=== PATIENT | male | born 1980 | race Caucasian/White ===

== ENCOUNTER 2020-06-06 17:18 | Emergency (ER) | payer OTHER ==
[~2020-06-06] VITALS: Ht 177.8 cm; Wt 72.6 kg
[2020-06-06] MEDS ORDERED: SERT50TA PO (17:38)
[2020-06-06] MEDS ORDERED: ALBU8.5H8 INH (17:38)
[2020-06-06] MEDS ORDERED: ZYPREXA PO (17:38)
--- NOTE | 2020-06-06 17:47 | NUR ---
PT IS IN ROOM #1A. DR BOSE EVALUATED THE PT. PT IS RESTING IN BED COMFORTABLY. NO ACUTE DISTRESS. PT IS UNDER DIRECT SUPERVISION OF LORI DEE.
[2020-06-06 17:51] LABS: BASOPHILS % (AUTO) 0.5 % (0.0-2.0); EOSINOPHILS # (AUTO) 0.5 K/uL (0.0-0.7); EOSINOPHILS % (AUTO) 6.5 % (0.0-7.0); HEMATOCRIT 39.7 % (36.7-47.1); HEMOGLOBIN 13.9 g/dL (12.5-16.3); LYMPHOCYTES # (AUTO) 2.6 K/uL (20.0-40.0); LYMPHOCYTES % (AUTO) 35.1 % (20.5-51.5); MEAN CORPUSCULAR HEMOGLOBIN 31.2 uug (23.8-33.4); MEAN CORPUSCULAR HGB CONC 35 g/dL (32.5-36.3); MEAN CORPUSCULAR VOLUME 89.1 fL (73.0-96.2); MONOCYTES # (AUTO) 0.7 K/uL (2.0-10.0); MONOCYTES % (AUTO) 8.8 % (0.0-11.0); NEUTROPHILS # (AUTO) 3.7 K/uL (1.8-8.9); NEUTROPHILS % (AUTO) 49.1 % (38.5-71.5); PLATELET COUNT (AUTO) 274 K/uL (152-348); RED BLOOD CELL COUNT(AUTO) 4.45 MIL/uL (4.06-5.63); WHITE BLOOD COUNT (AUTO) 7.5 K/uL (3.6-10.2)
[2020-06-06 18:04] LABS: ETHANOL < 3 MG/DL (0-0)
[2020-06-06 18:09] LABS: *AMPHETAMINE, URINE NEGATIVE (NEGATIVE); *CANNABINOID, URINE NEGATIVE (NEGATIVE); *COCCAINE, URINE NEGATIVE (NEGATIVE); *OPIATE, URINE NEGATIVE (NEGATIVE); *PHENCYCLIDINE SCREEN,URINE NEGATIVE (NEGATIVE)
[2020-06-06 18:12] LABS: ALANINE AMINOTRANSFERASE 172 U/L (16-63); ALKALINE PHOSPHATASE 92 U/L (50-136); ASPARTATE AMINOTRANSFERASE 63 U/L (15-37); BILIRUBIN,DIRECT 0.1 mg/dL (0.0-0.2); BILIRUBIN,TOTAL 0.2 mg/dL (0.2-1.0); CARBON DIOXIDE 30 mmol/L (21-32); CHLORIDE 103 mmol/L (98-107); CREATININE 0.9 mg/dL (0.6-1.3); GLUCOSE 99 mg/dL (74-106); POTASSIUM 3.9 mmol/L (3.5-5.1); TOTAL PROTEIN, SERUM 7.1 g/dL (6.4-8.2); UREA NITROGEN, BLOOD 16 mg/dL (7-18)
--- NOTE | 2020-06-06 18:12 | NUR ---
[facility] [address] WAS CALLED ([phone]) , TALKED TO NURSING WILDLAND FIRE FIGHTER TREVER. PAPERWORK SHOULD BE FAXED TO # [phone].
[2020-06-06 18:25] LABS: ACETAMINOPHEN < 2.0 ug/mL (10-30)
--- NOTE | 2020-06-06 19:26 | NUR ---
Gary from [facility] faxed on all documents for transfer
--- NOTE | 2020-06-06 19:48 | NUR ---
Patient noted resting in bed watching TV, no behaviors noted at this time
--- NOTE | 2020-06-06 21:52 | NUR ---
Received telephone call from Melanie who stated pt has been accepted and may be transfered to [facility], Dr. Potter accepting, call [phone] [phone] for report.
--- NOTE | 2020-06-06 21:55 | NUR ---
Called [facility] for transport to [facility], trip#[id number], eta [phone].
--- NOTE | 2020-06-06 22:39 | NUR ---
Report given to Marianela SANDOVAL from [facility]
--- NOTE | 2020-06-06 23:20 | NUR ---
Patient Tranfers to outside Facility [facility] Physician:Dr. Potter Location:[place]
== END 2020-06-06 23:20 ==
LOC: ER 17:21
DX: F32.9 Major depressive disorder, single episode, unspecified (principal); R45.851 Suicidal ideations; R74.01 Elevation of levels of liver transaminase levels; Z20.828 Contact with and (suspected) exposure to other viral communicable diseases; J45.909 Unspecified asthma, uncomplicated; F41.9 Anxiety disorder, unspecified; Z79.899 Other long term (current) drug therapy
CPT/HCPCS: 36415; 85025; A4663; G0480

== ENCOUNTER 2020-08-18 18:25 | Emergency (ER) | payer OTHER ==
[~2020-08-18] VITALS: Ht 177.8 cm; Wt 72.6 kg
[~2020-08-18 18:25] MED LIST: ALBU8.5H8 INH; SERT50TA PO; ZYPREXA PO
--- NOTE | 2020-08-18 18:58 | NUR ---
I SPOKE WITH ART AT [facility] OR [facility], HE STATED THEY NEED A UA,UDS,CBC AND COVID TEST FOR MEDICAL CLEARANCE, AND TO FAX THE INFORMATION WHEN READY, [employer] NOTIFIED. INTAKE INFO: TEL: [phone] FAX: [phone]
[2020-08-18 19:30] LABS: *BILIRUBIN,URIN NEGATIVE (NEGATIVE); *BLOOD, URINE NEGATIVE (NEGATIVE); *CLARITY,URINE CLEAR (CLEAR); *COLOR,URINE YELLOW (YELLOW); *KETONES,URINE 1+ (NEGATIVE); *UROBILINOGEN,URINE 0.2 E.U./dl (NORMAL); LEUKOCYTE ESTERASE ,URINE NEGATIVE (NEGATIVE); NITRITE, URINE NEGATIVE (NEGATIVE); PH,URINE 5.5 (5.0-8.0); UGLUCOSE NEGATIVE (NEGATIVE)
[2020-08-18 19:36] LABS: *AMPHETAMINE, URINE NEGATIVE (NEGATIVE); *CANNABINOID, URINE NEGATIVE (NEGATIVE); *COCCAINE, URINE NEGATIVE (NEGATIVE); *OPIATE, URINE NEGATIVE (NEGATIVE); *PHENCYCLIDINE SCREEN,URINE NEGATIVE (NEGATIVE)
[2020-08-18] MEDS ORDERED: LORAZEPAM 0.5 MG TABLET PO ONE (20:15)
[2020-08-18 20:16] LABS: BASOPHILS % (AUTO) 0.4 % (0.0-2.0); EOSINOPHILS # (AUTO) 0.4 K/uL (0.0-0.7); EOSINOPHILS % (AUTO) 3.6 % (0.0-7.0); HEMATOCRIT 45.5 % (36.7-47.1); HEMOGLOBIN 15.3 g/dL (12.5-16.3); LYMPHOCYTES # (AUTO) 2.2 K/uL (20.0-40.0); LYMPHOCYTES % (AUTO) 21.3 % (20.5-51.5); MEAN CORPUSCULAR HEMOGLOBIN 30.7 uug (23.8-33.4); MEAN CORPUSCULAR HGB CONC 34 g/dL (32.5-36.3); MEAN CORPUSCULAR VOLUME 91.4 fL (73.0-96.2); MONOCYTES # (AUTO) 0.7 K/uL (2.0-10.0); MONOCYTES % (AUTO) 6.4 % (0.0-11.0); NEUTROPHILS # (AUTO) 7.1 K/uL (1.8-8.9); NEUTROPHILS % (AUTO) 68.3 % (38.5-71.5); PLATELET COUNT (AUTO) 313 K/uL (152-348); RED BLOOD CELL COUNT(AUTO) 4.98 MIL/uL (4.06-5.63); WHITE BLOOD COUNT (AUTO) 10.5 K/uL (3.6-10.2)
[2020-08-18] MEDS ORDERED: LORAZEPAM 0.5 MG TABLET ONE (20:19)
[2020-08-18 20:24] LABS: CARBON DIOXIDE 25 mmol/L (21-32); CHLORIDE 102 mmol/L (98-107); CREATININE 0.8 mg/dL (0.6-1.3); ETHANOL < 3 MG/DL (0-0); GLUCOSE 124 mg/dL (74-106); POTASSIUM 3.4 mmol/L (3.5-5.1); UREA NITROGEN, BLOOD 9 mg/dL (7-18)
[2020-08-18 20:29] LABS: ACETAMINOPHEN < 2.0 ug/mL (10-30); ALANINE AMINOTRANSFERASE 105 U/L (16-63); ALKALINE PHOSPHATASE 82 U/L (50-136); ASPARTATE AMINOTRANSFERASE 35 U/L (15-37); BILIRUBIN,DIRECT 0.2 mg/dL (0.0-0.2); BILIRUBIN,TOTAL 0.5 mg/dL (0.2-1.0); TOTAL PROTEIN, SERUM 7.4 g/dL (6.4-8.2)
--- NOTE | 2020-08-18 20:30 | NUR ---
PATIENT ARE MEDICALLY CLEARED BY DR CHAMPION
--- NOTE | 2020-08-18 20:50 | NUR ---
I SPOKE WITH ART AT [facility]. TEST FAXED REQUESTED TO [phone].
--- NOTE | 2020-08-18 21:28 | NUR ---
SPOKE WIHT ART FROM [facility] WAITING FOR [employer] FAX WAS RECEIVED.
--- NOTE | 2020-08-18 22:10 | NUR ---
pt placed on a guerney ,positioned for comfort.
[2020-08-18] MEDS ORDERED: POTASSIUM CHLORIDE 10 MEQ TAB.PRT.SR PO ONE (23:30)
[2020-08-18] MEDS ORDERED: POTASSIUM CHLORIDE 10 MEQ TAB.PRT.SR ONE (23:52)
--- NOTE | 2020-08-19 01:39 | NUR ---
PT SLEEPING AT 0100 RECEIVED A CALL FROM [facility] TO IN FORM ACCEPTANCE , DR NICHOLSON ACCPTED THE PT.
--- NOTE | 2020-08-19 03:17 | NUR ---
SBAR REPORT TO [place] FROM [facility] [address]
--- NOTE | 2020-08-19 03:30 | NUR ---
CALLED VALER[facility] TO REPORT ETA OF PT ARRIVAL AT FACILITY AT 8AM
--- NOTE | 2020-08-19 07:49 | NUR ---
Patient is awake and alert. Awaiting for transfer. Patient ambulated to bathroom with steady gait.
--- NOTE | 2020-08-19 08:30 | NUR ---
Patient drank a bottle of water. Ambiulance here to take patient to other facility. Vital signs stable.
== END 2020-08-19 08:33 ==
LOC: ER 18:27
DX: F32.9 Major depressive disorder, single episode, unspecified (principal); F41.9 Anxiety disorder, unspecified; Z20.828 Contact with and (suspected) exposure to other viral communicable diseases; J45.909 Unspecified asthma, uncomplicated; F15.10 Other stimulant abuse, uncomplicated
CPT/HCPCS: 36415; 85025; A4663; G0480

== ENCOUNTER 2020-08-30 06:31 | Emergency (ER) | payer OTHER ==
[~2020-08-30] VITALS: Ht 177.8 cm; Wt 77.1 kg
[~2020-08-30 06:31] MED LIST changes: -ZYPREXA PO
[2020-08-30 07:07] LABS: *BILIRUBIN,URIN NEGATIVE (NEGATIVE); *BLOOD, URINE NEGATIVE (NEGATIVE); *CLARITY,URINE SLIGHTLY CLOUDY (CLEAR); *COLOR,URINE YELLOW (YELLOW); *KETONES,URINE NEGATIVE (NEGATIVE); *UROBILINOGEN,URINE 0.2 E.U./dl (NORMAL); LEUKOCYTE ESTERASE ,URINE NEGATIVE (NEGATIVE); NITRITE, URINE NEGATIVE (NEGATIVE); PH,URINE 5.5 (5.0-8.0); UGLUCOSE NEGATIVE (NEGATIVE)
[2020-08-30 07:14] LABS: BASOPHILS # (AUTO) 0.1 K/uL (0.0-8.0); BASOPHILS % (AUTO) 0.7 % (0.0-2.0); EOSINOPHILS # (AUTO) 0.3 K/uL (0.0-0.7); EOSINOPHILS % (AUTO) 4.4 % (0.0-7.0); HEMATOCRIT 43.7 % (36.7-47.1); HEMOGLOBIN 15.1 g/dL (12.5-16.3); LYMPHOCYTES # (AUTO) 1.6 K/uL (20.0-40.0); LYMPHOCYTES % (AUTO) 21.1 % (20.5-51.5); MEAN CORPUSCULAR HEMOGLOBIN 30.9 uug (23.8-33.4); MEAN CORPUSCULAR HGB CONC 35 g/dL (32.5-36.3); MEAN CORPUSCULAR VOLUME 89.3 fL (73.0-96.2); MONOCYTES # (AUTO) 0.5 K/uL (2.0-10.0); MONOCYTES % (AUTO) 6.5 % (0.0-11.0); NEUTROPHILS # (AUTO) 5.2 K/uL (1.8-8.9); NEUTROPHILS % (AUTO) 67.3 % (38.5-71.5); PLATELET COUNT (AUTO) 283 K/uL (152-348); RED BLOOD CELL COUNT(AUTO) 4.89 MIL/uL (4.06-5.63); WHITE BLOOD COUNT (AUTO) 7.7 K/uL (3.6-10.2)
[2020-08-30 07:24] LABS: CARBON DIOXIDE 27 mmol/L (21-32); CHLORIDE 103 mmol/L (98-107); CREATININE 0.9 mg/dL (0.6-1.3); GLUCOSE 101 mg/dL (74-106); POTASSIUM 3.6 mmol/L (3.5-5.1); UREA NITROGEN, BLOOD 13 mg/dL (7-18)
[2020-08-30 07:30] LABS: ALANINE AMINOTRANSFERASE 68 U/L (16-63); ALKALINE PHOSPHATASE 81 U/L (50-136); ASPARTATE AMINOTRANSFERASE 23 U/L (15-37); BILIRUBIN,DIRECT 0.1 mg/dL (0.0-0.2); BILIRUBIN,TOTAL 0.4 mg/dL (0.2-1.0); TOTAL PROTEIN, SERUM 7.5 g/dL (6.4-8.2)
[2020-08-30 07:31] LABS: ACETAMINOPHEN < 2.0 ug/mL (10-30); ETHANOL < 3 MG/DL (0-0)
[2020-08-30 07:32] LABS: *AMPHETAMINE, URINE NEGATIVE (NEGATIVE); *CANNABINOID, URINE NEGATIVE (NEGATIVE); *COCCAINE, URINE NEGATIVE (NEGATIVE); *OPIATE, URINE NEGATIVE (NEGATIVE); *PHENCYCLIDINE SCREEN,URINE NEGATIVE (NEGATIVE)
--- NOTE | 2020-08-30 08:44 | NUR ---
finishe hospital tray with good apetite
[2020-08-30 08:48] LABS: RBC,URINE 0-3 /HPF (0-3)
[2020-08-30 08:49] LABS: BACTERIA,URINE NONE SEEN /HPF (NONE SEEN); SQUAMOUS EPITHELIAL CELL,UR FEW /HPF (NONE SEEN); WBC,URINE 0-3 /HPF (0-3)
--- NOTE | 2020-08-30 10:40 | NUR ---
[employer] ARTISTIC DIRECTOR AT [facility]
--- NOTE | 2020-08-30 12:23 | NUR ---
lunch tray provided for pt.
--- NOTE | 2020-08-30 13:19 | NUR ---
10:40am: SW met with this patient, per request from ED RN David for a medical social consultant consultation to assist with voluntary inpatient psychiatric placement. Patient is a 39 year old male, awake, alert, oriented x 4, receptive to meeting with this SW. Patient states he is homeless and lives with his friend Ethan in their car. Patient reports coming to the ED due to Depression and Anxiety, along with suicidal ideation of possibly wanting to overdose. Patient reports recent hospitalization at [facility], and expressed wanting to return there voluntarily. Patient stated that the during his recent hospitalization at [facility], patient was prescribed Zoloft and Zyprexa, but he feels the medications are not working very well. Patient reported no current use of drugs or alcohol, however stated that he smokes cigarettes on a daily basis. Patient's affect was flat, behavior was WNL. Speech and tone of voice were clear appropriate. Thought process and content were appropriate; no hallucinations or delusional thoughts reported or observed. PLAN: Patient to fax medical records to [facility] intake and to [facility] for placement.
--- NOTE | 2020-08-30 13:43 | NUR ---
10:55am: Patient's medical records faxed to Kal at [facility], fax# [phone]. Patient's clinicals also faxed to [facility], fax #[phone]. SW informed ED LORI Hernandez and Dr. Powell of above.
--- NOTE | 2020-08-30 15:21 | NUR ---
3:10pm: SW received a call from Jaelyn, intake department at [facility], , stating that patient has been accepted for inpatient psychiatric hospitalization. Admitting physician would be Dr. Mahoney, and patient would be assigned to room 316-A. Nursing report would be given at [phone]. Jaelyn stated that she also spoke with ED RN David, and provided her with the same information stated above. [facility], [address] [place] [id number]. Patient to be transported by ambulance.
--- NOTE | 2020-08-30 15:30 | NUR ---
JUAN FROM [facility] CALLED AND SAID DR. GOODSON ACCEPTED THE PT. PT GOING TO ROOM 318 A,
--- NOTE | 2020-08-30 16:22 | NUR ---
DIANE called [facility] [phone] to make ambulance transport arrangements for the patient. DIANE spoke with Joni, who stated that due to patient's insurance, SW would need to go through contracted transportation company [facility] to make ambulance arrangements. DIANE called [facility], and spoke with Miri. Ambulance transportation was arranged, confirmation # [id number]. Miri stated that they would call back with an ETA for pick-up. DIANE instructed Miri to call the ED directly, and provided Miri with the phone number to the ED [phone]. DIANE informed ED RN David of above.
--- NOTE | 2020-08-30 17:12 | NUR ---
SW received a call from Grace at [facility], , who stated that patient's pick-up time by ambulance would be at 6:15pm. Patient will be picked up from [facility] and transported to [facility], [address] [place], [place] [id number]. Grace stated that the ambulance company would be [facility]. ED RN David informed of above.
--- NOTE | 2020-08-30 17:45 | NUR ---
GAVE REPORT TO JOSE D AT [facility].
--- NOTE | 2020-08-30 18:34 | NUR ---
[facility] CALLED, ETA
--- NOTE | 2020-08-30 19:29 | NUR ---
melting supervisor notified of need of sitter for this patient. Stated there is none avaliable at this time so; pending sitter.
--- NOTE | 2020-08-30 21:19 | NUR ---
[facility]TA[facility] [address] WILL BE PICKING UP PATIENT WITHIN THE NEXT HOUR.
--- NOTE | 2020-08-30 22:35 | NUR ---
Patient Tranfers to outside Facility [facility]. Patient is ambulatory, took all belongings, vital signs are stable, was taken by [facility]. Physician: HAMZAH Location: [facility]
== END 2020-08-30 22:35 ==
LOC: ER 06:37
DX: Z02.2 Encounter for examination for admission to residential institution (principal); R45.851 Suicidal ideations; Z20.822 Contact with and (suspected) exposure to COVID-19; J45.909 Unspecified asthma, uncomplicated; F32.9 Major depressive disorder, single episode, unspecified; F41.9 Anxiety disorder, unspecified
CPT/HCPCS: 36415; 85025; A4663; G0480